=== PATIENT | female | born 1945 ===

== ENCOUNTER 2018-12-31 08:55 | Outpatient (CLI) | payer OTHER ==
[~2018-12-31] VITALS: Ht 170.2 cm; Wt 63.5 kg
== END 2018-12-31 09:15 | disposition home or self-care (01) ==
LOC: OFIC 805 08:55
DX: R22.1 Localized swelling, mass and lump, neck (principal); C14.0 Malignant neoplasm of pharynx, unspecified; R13.19 Other dysphagia; R49.0 Dysphonia

== ENCOUNTER 2019-01-07 07:45 | Outpatient (CLI) | payer OTHER ==
[~2019-01-07] VITALS: Ht 152.4 cm; Wt 63.5 kg
== END 2019-01-07 08:00 | disposition home or self-care (01) ==
LOC: OFIC 805 07:45
DX: R22.1 Localized swelling, mass and lump, neck (principal); C14.0 Malignant neoplasm of pharynx, unspecified; R13.19 Other dysphagia; R49.0 Dysphonia; C76.0 Malignant neoplasm of head, face and neck